=== PATIENT | female | born 1945 | race Caucasian/White ===

== ENCOUNTER 2020-05-02 10:09 | Emergency (ER) | payer MEDICARE ==
[~2020-05-02] VITALS: Ht 157.5 cm; Wt 72.7 kg
[2020-05-02 10:12] VITALS: BP 161/107
== END 2020-05-02 11:46 | disposition home or self-care (01) ==
LOC: ER 10:10
DX: R07.89 Other chest pain (principal); G89.29 Other chronic pain; M25.561 Pain in right knee; M25.562 Pain in left knee; V87.7XXA Person injured in collision between other specified motor vehicles (traffic), initial encounter; Y92.89 Other specified places as the place of occurrence of the external cause; Y92.488 Other paved roadways as the place of occurrence of the external cause; Y99.8 Other external cause status
CPT/HCPCS: 71045; 93005; 99283

== ENCOUNTER 2023-05-28 05:57 | Observation (INO) | payer MEDICARE ==
[2023-05-22 10:55] LABS: BASOPHILS % (AUTO) 0.7 % (0-1); EOSINOPHILS # (AUTO) 0.1 X10'3 (0-0.9); LYMPHOCYTES # (AUTO) 1.7 X10'3 (1.1-4.8); LYMPHOCYTES % (AUTO) 31.6 % (21-51); MEAN CORPUSCULAR HEMOGLOBIN 29.3 PG (27.0-31.0); MEAN CORPUSCULAR HGB CONC 33.3 g/dL (33.0-36.5); MEAN CORPUSCULAR VOLUME 87.8 FL (78-98); MEAN PLATELET VOLUME 8.6 FL (7.4-10.4); MONOCYTES # (AUTO) 0.4 X10'3 (0-0.9); MONOCYTES % (AUTO) 7.1 % (2-12); NEUTROPHILS # (AUTO) 3.3 X10'3 (1.8-7.7); NEUTROPHILS % (AUTO) 59.6 % (42-75); PRE OP HEMATOCRIT 45.7 % (35.0-45.0); PRE OP HEMOGLOBIN 15.2 g/dL (12.0-16.0); PRE OP PLATELET COUNT 229 X10'3 (140-440); PRE OP WHITE BLOOD COUNT 5.5 10'3 (4.8-10.8); RED CELL DISTRIBUTION WIDTH 13.8 % (11.5-14.5)
[2023-05-22 12:27] LABS: ALBUMIN 3.8 G/DL (3.4-5.0); ALKALINE PHOSPHATASE 94 IU/L (46-116); BLOOD UREA NITROGEN 16 MG/DL (7-18); BUN/CREATININE RATIO 19.5 (10.0-20.0); CALCIUM 9.3 MG/DL (8.5-10.1); CHLORIDE 105 MMOL/L (99-107); CREATININE 0.82 MG/DL (0.40-0.90); PRE OP ALT 20 U/L (30-65); PRE OP ANION GAP 13 (8-16); PRE OP AST 15 U/L (10-37); PRE OP BILIRUB, TOTAL 0.8 MG/DL (0.0-1.0); PRE OP GLUCOSE 92 MG/DL (70-104); PRE OP POTASSIUM 3.8 MMOL/L (3.4-5.1); PRE OP SODIUM 141 MMOL/L (135-145); TOTAL CARBON DIOXIDE 23.3 MMOL/L (24-32); TOTAL PROTEIN 7.8 G/DL (6.4-8.2); eGFR 68 ML/MIN
[~2023-05-28] VITALS: Ht 152.4 cm; Wt 72.5 kg
[2023-05-28] VITALS (30 sets, daily range): BP systolic 103–166; BP diastolic 51–91; PULSE 63–108; RESP 2–34; TEMP 98.1–98.4; O2SAT 91–100
[2023-05-28] MEDS: cefazolin 2gm/D5W 100mL 100 ML IV ONE (05:30)
[~2023-05-28 05:57] MED LIST: CLOP75TA34 PO; LISI5TAB22 PO
[2023-05-28] MEDS: famotidine 20mg tablet PO ONE (06:34)
[2023-05-28] MEDS: ringers solution, lacted 1,000 ML IV SCH ×2 (06:35→16:19)
[2023-05-28] MEDS ORDERED: MIDAZolam 1 MG/ML 5ML VIAL ONE (07:26)
[2023-05-28] MEDS ORDERED: fentaNYL/PF 50MCG/1 ML 2ML syringe ONE ×2 (07:26→13:23)
[2023-05-28] MEDS ORDERED: LIDOcaine Viscous 15ml cup ONE (07:26)
[2023-05-28] MEDS ORDERED: LIDOcaine 1% 30ml preserv. free vial ONE (12:24)
[2023-05-28] MEDS ORDERED: BUPIVAcaine/PF 2.5mg/ml (0.25%) 10ml vial ONE (12:25)
[2023-05-28] MEDS ORDERED: sevoflurane 250ml liquid IH ONE (13:12)
[2023-05-28] MEDS ORDERED: midazolam 1 mg/ML 2ml injection ONE (13:23)
[2023-05-28] MEDS ORDERED: rocuronium 10mg/ml inj IV ONE (13:32)
[2023-05-28] MEDS ORDERED: propofol inj 20 ML IV ONE (13:32)
[2023-05-28] MEDS ORDERED: dexamethasone sod phosphate 4mg/ml inj. ONE (13:37)
[2023-05-28] MEDS: BUPIVAcaine/PF 2.5 mg/ml (0.25%) 30ml vial IJ ONE (13:55)
[2023-05-28] MEDS: LIDOcaine 1% 30ml preserv. free vial IJ ONE (13:56)
[2023-05-28] MEDS ORDERED: morphine 4 MG/ML inj SYRINge IV PRN (15:05)
[2023-05-28] MEDS ORDERED: morphine 2 MG/ML inj. syringe IV PRN (15:05)
[2023-05-28] MEDS ORDERED: proCHLORperazine 10 MG/2 ml inj IV PRN (15:05)
[2023-05-28] MEDS ORDERED: meperidine/PF 25mg/ml syringe IV PRN ×3 (15:05)
[2023-05-28] MEDS ORDERED: ondansetron/PF 4mg/2ml inj IV PRN (15:05)
[2023-05-28] MEDS ORDERED: ondansetron/PF 4mg/2ml inj ONE (15:32)
[2023-05-28] MEDS ORDERED: neostigmine methylsulfate 1 MG/ML 10ml vial ONE (15:32)
[2023-05-28] MEDS ORDERED: glycopyrrolate 0.2mg/ml inj ONE (15:32)
[2023-05-28] MEDS: normal saline 1000ml 1,000 ML IV SCH (15:40)
[2023-05-28] MEDS ORDERED: naloxone 0.4 mg/ml inj IV PRN (15:40)
[2023-05-28] MEDS: HYDROmorph/NS 0.2 mg/ml PCA 100 ML IV SCH (16:27)
[2023-05-28] MEDS: heparin, porcine 5000 units/ml vial SQ SCH (20:31)
[2023-05-28] MEDS: potassium CL 20mEq in D5-1/2NS 1,000 ML IV SCH (23:40)
[2023-05-29 02:00] VITALS: BP 124/67; PULSE 101; RESP 16; TEMP 99.1; O2SAT 91
[2023-05-29] MEDS: ondansetron/PF 4mg/2ml inj IV PRN (04:31)
[2023-05-29 06:00] VITALS: BP 144/89; PULSE 101; RESP 16; TEMP 99.6; O2SAT 92
[2023-05-29] MEDS: lisinopril 10 MG tablet PO SCH (08:00)
[2023-05-29] MEDS: clopidogrel 75mg tablet PO SCH (08:09)
[2023-05-29 12:00] VITALS: RESP 12; O2SAT 94
[2023-05-29] MEDS: oxyCODONE/APAP 5-325mg tablet PO ONE (12:15)
[2023-05-29] MEDS: PCA WASTE DOCUMENTATION 1 MG ML MC SCH (12:29)
[2023-05-29 12:46] VITALS: BP 144/68; PULSE 65; RESP 12; TEMP 97.9; O2SAT 93
[2023-05-29] MEDS ORDERED: proCHLORperazine 10 MG/2 ml inj IV PRN (15:45)
[2023-05-29 18:00] VITALS: BP 162/74; PULSE 88; RESP 18; TEMP 98; O2SAT 79
[2023-05-29] MEDS: oxyCODONE/APAP 5-325mg tablet PO PRN (19:26)
[2023-05-29 22:00] VITALS: BP 175/76; PULSE 81; RESP 15; TEMP 98.2; O2SAT 96
[2023-05-30 06:00] VITALS: BP 160/96; PULSE 101; RESP 15; TEMP 97.3; O2SAT 97
[2023-05-30] MEDS ORDERED: PER5325T PO (09:26)
[2023-05-30 10:00] VITALS: BP 185/103; PULSE 107; RESP 18; TEMP 98.6; O2SAT 97
== END 2023-05-30 10:20 | disposition home or self-care (01) ==
LOC: PRE-OP 05:57 → ORTHO 4S 15:42 → INTOOBSV 19:22 → ORTHO 4S 19:22 → UNDOADMOB 19:22
PROVIDERS: ADMIT Surgery; ATTEND Surgery
DX: K44.9 Diaphragmatic hernia without obstruction or gangrene (principal); K29.70 Gastritis, unspecified, without bleeding; I73.9 Peripheral vascular disease, unspecified; I10 Essential (primary) hypertension; Z90.710 Acquired absence of both cervix and uterus; Z79.899 Other long term (current) drug therapy
CPT/HCPCS: 36415; 43235; 43282; 71045; 80053; 82948; 85025; 87081; 93005; 96365; 96366; 96372; 96375; 97116; 97161; 97530; C1781; G0378; J0690; J1100; J1170; J1644; J2250; J2405; J2704; J2710; J3010; J3480; J3490; J7030; J7120; 99152; A4615; A4618; A4620; A5200; C1758